=== PATIENT | female | born 1930 | race Caucasian/White ===

== ENCOUNTER → 2016-09-27 | Outpatient (CLI) | payer OTHER, MEDICARE ==
[~2016-09-27] MED LIST: ACET-1256 PO; ALBU18002 INH; BIMA0.01 OPB; BRIM0.2S18 OPB; CALC-20 PO; CALC500C70 PO; DLCS PR; DOCU100C31 PO; DXY100 PO; LCTX PO; LVNIS30 SC; MOML PO; OMEP40CA41 PO; ONDA4TAB46 PO; OXYC1TAB3 PO; POLY335025 PO; SENN8.6T15 PO; SERT25TA PO; TIMO1SOL6 OPB; TMPOPS15 OPB
[2016-09-27 12:34] LABS: BLOOD UREA NITROGEN 13 mg/dl (7-18); BUN/CREATININE RATIO 15.5 (10-20); CALCIUM 8.6 mg/dl (8.5-10.1); CARBON DIOXIDE 27 mmol/L (21-32); CHLORIDE 105 mmol/L (98-107); CREATININE 0.86 mg/dl (0.60-1.20); GLUCOSE 104 mg/dl (70-99); POTASSIUM 4.2 mmol/L (3.5-5.1); SODIUM 142 mmol/L (136-145)
[2016-09-27 13:06] LABS: ESTIMATED AVERAGE GLUCOSE 128 mg/dl; HA1C FLAG Normal (Normal)
== END | disposition home or self-care (01) ==
LOC: C.LABWYN 11:40
PROVIDERS: ATTEND Nurse Practitioner Family
DX: E11.9 Type 2 diabetes mellitus without complications (principal)

== ENCOUNTER 2016-11-06 06:21 | Inpatient (IN) | payer OTHER, MEDICARE ==
[~2016-11-06] VITALS: Ht 152.4 cm; Wt 69.3 kg
[~2016-11-06 06:21] MED LIST changes: -ACET-1256 PO; -ALBU18002 INH; -BRIM0.2S18 OPB; -CALC500C70 PO; -DLCS PR; -DXY100 PO; -LCTX PO; -MOML PO; -OMEP40CA41 PO; -ONDA4TAB46 PO; -SENN8.6T15 PO; -TIMO1SOL6 OPB
--- NOTE | 2016-11-06 07:14 | EMERGENCY ROOM VISIT NOTE ---
History Report prepared by Shirley: Alexandr Soni Under the Supervision of: Dr. Jackie Allred M.D. First contact with patient: 06:41 Chief Complaint: FALL Stated Complaint: FALL History of Present Illness The patient is an 86 year old female who presents to the Emergency Room with complaints of an acute fall that occurred earlier this morning. The patient currently complains of left hip and right elbow pain. Her hip pain is rated 6/ 10 in severity. She currently denies head or neck pain. She got up to go to the bathroom when the fall occurred. The patient notes that she hit her head, but she is not sure what she hit her head on. Per family, the patient lives at [facility]. She does not wear oxygen at home. As per EMS, the patient was hypoxic upon their arrival. Source of History: patient, family, EMS Onset: this morning Position: other (global) Quality: other (fall) Timing: other (acute) Associated Symptoms: No headache, No neck pain Note: Right elbow, left hip pain. Review of Systems See HPI for pertinent positives & negatives. A total of 10 systems reviewed and were otherwise negative. Past Medical & Surgical Medical Problems: (1) Cataracts (2) Depression (3) GI bleed (4) Glaucoma (5) Hip fracture, intertrochanteric (6) History of duodenal ulcer (7) Hypoxia (8) Intertrochanteric fracture (9) Syncope Surgical Problems: (1) History of repair of hip fracture (2) S/P hysterectomy (3) S/P IVC filter Family History Cancer Social History Smoking Status: Never Smoker Alcohol Use: none Drug Use: none Marital Status: Housing Status: unknown Occupation Status: retired Current/Historical Medications Scheduled Brimonidine Tartrate (Brimonidine Tartrate), 1 DROP OPB TID Calcium/Vitamin D (Os-Tommie 500 Plus D), 1 TAB PO DAILY Omeprazole (Prilosec), 40 MG PO BID Sennosides-Docusate Sodium (Sennalax-S), 1 TAB PO DAILY Sertraline (Zoloft), 25 MG PO DAILY Timolol Hemihydrate 0.25% Oph (Betimol 0.25% Oph), 1 DROP OPB BID Scheduled PRN Albuterol Sulfate (Proair Respiclick), 2 PUFFS INH Q4 PRN for cough or wheezing Bisacodyl (Bisac-Evac), 1 SUPP MD DAILY PRN for Constipation Magnesium Hydroxide (Milk Of Magnesia), 30 ML PO DAILY PRN for Constipation Ondansetron Hcl (Zofran), 4 MG PO Q6 PRN for Nausea Allergies Coded Allergies: Cephalosporins (Verified Allergy, Unknown, ., 11/06/16) Penicillins (Verified Allergy, Unknown, Unknown, 11/06/16) Reported by daughters. Physical Exam Vital Signs Date Time Temp Pulse Resp B/P Pulse Ox O2 Delivery O2 Flow Rate FiO2 11/06/16 10:45 88 Nasal Cannula 2.0 11/06/16 09:40 99 22 159/110 88 Room Air 11/06/16 09:20 95 Nasal Cannula 2.0 11/06/16 08:15 88 18 175/87 94 Room Air 11/06/16 06:32 74 11/06/16 06:25 36.4 70 20 196/97 99 Nasal Cannula 4.0 Physical Exam Vital signs reviewed. General: Elderly, generally well-appearing female, in no significant distress. HEENT: No scleral icterus, PERRLA, neck supple. Atraumatic. Cardiovascular: Regular rate and rhythm, no extra sounds. Pulmonary: Clear to auscultation bilaterally, normal work of breathing. Abdomen: Soft, nontender, nondistended, positive bowel sounds. Musculoskeletal: Skin tear to the right elbow, full range of motion of the bilateral upper extremities, diffuse mild tenderness to upper extremities without deformity or swelling. Neurologic: Patient awake alert and oriented x 3 Skin: Warm, dry, no rash Medical Decision & Procedures ER Provider Diagnostic Interpretation: X-ray results as stated below per my interpretation and radiologist interpretation. Other radiology results as stated below per my review and radiologist interpretation: CHEST ONE VIEW PORTABLE CLINICAL HISTORY: fall trauma COMPARISON STUDY: 08/21/2014 FINDINGS: Superior mediastinal fullness possibly progressive compared to the prior study. This may be secondary to AP technique, although visibility of the aortic arch is somewhat suboptimal. CT of the chest is suggested. Lungs otherwise appear clear. Stable nodularity right upper lung. IMPRESSION: Increased prominence of the superior mediastinum with indistinctness of the aortic arch. CT of the chest is recommended as follow-up. Electronically signed by: Perez Jesus M.D. 11/06/2016 7:37 AM Dictated Date/Time: 11/06/2016 7:36 AM PELVIS 1 OR 2 VIEW ROUTINE CLINICAL HISTORY: fall trauma. Pain. COMPARISON: 08/13/2014 DISCUSSION: Findings of a prior right hip nailing procedure. No well-defined acute bony abnormality. There is no evidence for soft tissue swelling. IMPRESSION: Postoperative change right hip and femur. No acute bony abnormality. Electronically signed by: Perez Jesus M.D. 11/06/2016 7:36 AM Dictated Date/Time: 11/06/2016 7:[address] CT DOSE: 1842.80 mGy.cm HISTORY: Trauma. Mental status change. fall, mild confusion TECHNIQUE: Multiaxial CT images of the head were performed without the use of intravenous contrast. Comparison: 08/21/2014 Findings: The paranasal sinuses and mastoid air cells are clear. The calvarium and skull base are intact. The ventricles and sulci are within normal limits. There is no mass, hematoma, midline shift, or acute infarct. Findings of considerable chronic small vessel change. 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 No new or interval finding based on the current exam. Moderate artifact based on patient motion. Impression: No acute intracranial abnormality. Considerable chronic small vessel change as well as age-related atrophy. Electronically signed by: Perez Jesus M.D. 11/06/2016 8:27 AM Dictated Date/Time: 11/06/2016 8:25 AM CHEST CTA for PULMONARY ARTERIES CT DOSE: 503.08 mGy.cm HISTORY: Chest pain dyspnea TECHNIQUE: Multiaxial CT images of the chest were performed following the intravenous administration of contrast to evaluate the pulmonary arteries. Maximal intensity projection images were also obtained. COMPARISON STUDY: None. FINDINGS: Aneurysmal dilatation thoracic aorta with maximum diameter at the level of the arch of 5.2cm. This is partially thrombus filled with a true luminal dimension of 3.6 cm. There is no evidence for dissection. Pulmonary arterial vasculature enhances appropriately. There is a very small parenchymal infiltrate posterior aspect right lower lobe. There is a 1 cm peripherally based nodule right midlung. Upper lungs otherwise are clear. IMPRESSION: 1. 5.2 cm aneurysmal dilatation apex of the aortic arch. 2. It is partially thrombus filled with a true luminal dimension of 3.5 cm. 3. No evidence for dissection or pulmonary embolus. 4. A small parenchymal infiltrate right base. 5. 1 cm nodular density peripheral aspect right midlung. Close CT follow-up in approximately 3 months is suggested Electronically signed by: Perez Jesus M.D. 11/06/2016 9:15 AM Dictated Date/Time: 11/06/2016 9:07 AM Laboratory Results Test 11/06/16 07:00 11/06/16 07:40 Urine Color YELLOW Urine Appearance CLEAR (CLEAR) Urine pH 7.0 (4.5-7.5) Urine Specific [place] 1.020 (1.000-1.030) Urine Protein NEG (NEG) Urine Glucose (UA) NEG (NEG) Urine Ketones NEG (NEG) Urine Occult Blood NEG (NEG) Urine Nitrite NEG (NEG) Urine Bilirubin NEG (NEG) Urine Urobilinogen NEG (NEG) Urine Leukocyte Esterase NEG (NEG) Immature Granulocyte % (Auto) 0.3 % White Blood Count 6.66 K/uL (4.8-10.8) Red Blood Count 4.58 M/uL (4.2-5.4) Hemoglobin 13.1 g/dL (12.0-16.0) Hematocrit 39.5 % (37-47) Mean Corpuscular Volume 86.2 fL (80-100) Mean Corpuscular Hemoglobin 28.6 pg (25-34) Mean Corpuscular Hemoglobin Concent 33.2 g/dl (32-36) Platelet Count 172 K/uL (130-400) Mean Platelet Volume 10.1 fL (7.4-10.4) Neutrophils (%) (Auto) 81.4 % Lymphocytes (%) (Auto) 10.1 % Monocytes (%) (Auto) 6.2 % Eosinophils (%) (Auto) 1.5 % Basophils (%) (Auto) 0.5 % Neutrophils # (Auto) 5.43 K/uL (1.4-6.5) Lymphocytes # (Auto) 0.67 K/uL (1.2-3.4) Monocytes # (Auto) 0.41 K/uL (0.11-0.59) Eosinophils # (Auto) 0.10 K/uL (0-0.5) Basophils # (Auto) 0.03 K/uL (0-0.2) Immature Granulocyte # (Auto) 0.02 K/uL (0.00-0.02) Total Bilirubin 0.4 mg/dl (0.2-1) Direct Bilirubin < 0.1 mg/dl (0-0.2) Aspartate Amino Transf (AST/SGOT) 21 U/L (15-37) Alanine Aminotransferase (ALT/SGPT) 24 U/L (12-78) Alkaline Phosphatase 103 U/L (45-117) Total Protein 7.1 gm/dl (6.4-8.2) Albumin 3.5 gm/dl (3.4-5.0) Procalcitonin < 0.05 ng/mL (0-0.5) Laboratory results per my review. Medications Administered Medications (Trade) Dose Ordered Sig/Bo Route Start Time Stop Time Status Last Admin Dose Admin Labetalol HCl (Normodyne IV) 10 mg NOW STAT IV 11/06/16 09:43 11/06/16 09:45 DC 11/06/16 09:58 10 MG Ondansetron HCl (Zofran Inj) 4 mg Q6H PRN IV 11/06/16 11:00 12/06/16 10:59 11/06/16 13:54 4 MG ECG Indication: other (fall) Rate (beats per minute): 84 Rhythm: sinus rhythm Findings: nonspecific-ST abn, no acute ischemic change, no ectopy, other (poor quality baseline for interpretation, low voltage) ED Course 0656: Past medical records reviewed. The patient was evaluated in room B5. A complete history and physical examination was performed. 0935: Updated the patient. 0943: Normodyne 10 mg IV. 0952: Spoke with Yanelis Aragon PA-C, [facility] Hospitalist. The patient will be evaluated. Medical Decision Differential diagnosis: Intracranial injury, cervical spine injury, intrathoracic injury, intra- abdominal injury, musculoskeletal injury. This patient was evaluated and appeared to be in no significant distress. Physical examination reveals an elderly and somewhat debilitated female. She is markedly hypertensive and was given 10 mg of IV labetalol. Chest x-ray was performed and reveals a widened mediastinum. A CT scan of the chest was recommended by radiology which was performed. This reveals a thoracic aneurysm without evidence of acute dissection. There is an intraluminal thrombus. CT scan of the head is negative. Laboratory work is fairly unrevealing. Urinalysis is negative. The patient's case was discussed with the hospitalist service. She will be evaluated for further management of the weakness and falls as well as a vascular surgery consultation regarding the aneurysm. Patient family are aware of the plan and agree. Consults Time Called: 939 Consulting Physician: Yanelis Aragon PA-C, [facility]ist. Returned Call: [phone]: Spoke with Yanelis Aragon PA-C, [facility]. The patient will be evaluated. Impression Primary Impression: Fall Additional Impressions: General weakness Thoracic aortic aneurysm Scribe Attestation The scribe's documentation has been prepared under my direction and personally reviewed by me in its entirety. I confirm that the note above accurately reflects all work, treatment, procedures, and medical decision making performed by me. Departure Information Dispostion Being Evaluated By Hospitalist Referrals LOLLY MENDES (PCP) Patient Instructions My [facility] Problem Qualifiers Primary Impression: Fall Encounter type: initial encounter Qualified Codes: W19.XXXA - Unspecified fall, initial encounter Additional Impressions: Thoracic aortic aneurysm Presence of rupture: without rupture Qualified Codes: I71.2 - Thoracic aortic aneurysm, without rupture
[2016-11-06] MEDS ORDERED: MOML PO (07:23)
[2016-11-06] MEDS ORDERED: CALC500C70 PO (07:23)
[2016-11-06] MEDS ORDERED: TIMO1SOL6 OPB (07:23)
[2016-11-06] MEDS ORDERED: BRIM0.2S18 OPB (07:23)
[2016-11-06] MEDS ORDERED: SENN8.6T15 PO (07:23)
[2016-11-06] MEDS ORDERED: OMEP40CA41 PO (07:23)
[2016-11-06] MEDS ORDERED: DLCS PR (07:23)
[2016-11-06] MEDS ORDERED: ALBU18002 INH (07:23)
[2016-11-06] MEDS ORDERED: ONDA4TAB46 PO (07:23)
[2016-11-06 07:26] LABS: MANUAL MICROSCOPIC REQUIRED? NO; REVIEW REQ? NO; URINE APPEARANCE CLEAR (CLEAR); URINE BILIRUBIN NEG (NEG); URINE COLOR YELLOW; URINE NITRITE NEG (NEG); UROBILINOGEN NEG (NEG); ZZURINE CULT IF INDIC CATH NO
--- NOTE | 2016-11-06 07:37 | DIAGNOSTIC IMAGING REPORT ---
PELVIS 1 OR 2 VIEW ROUTINE CLINICAL HISTORY: fall trauma. Pain. COMPARISON: 08/13/2014 DISCUSSION: Findings of a prior right hip nailing procedure. No well-defined acute bony abnormality. There is no evidence for soft tissue swelling. IMPRESSION: Postoperative change right hip and femur. No acute bony abnormality. Electronically signed by: Perez Jesus M.D. 11/06/2016 7:36 AM Dictated Date/Time: 11/06/2016 7:35 AM
--- NOTE | 2016-11-06 07:38 | DIAGNOSTIC IMAGING REPORT ---
CHEST ONE VIEW PORTABLE CLINICAL HISTORY: fall trauma COMPARISON STUDY: 08/21/2014 FINDINGS: Superior mediastinal fullness possibly progressive compared to the prior study. This may be secondary to AP technique, although visibility of the aortic arch is somewhat suboptimal. CT of the chest is suggested. Lungs otherwise appear clear. Stable nodularity right upper lung. IMPRESSION: Increased prominence of the superior mediastinum with indistinctness of the aortic arch. CT of the chest is recommended as follow-up. Electronically signed by: Perez Jesus M.D. 11/06/2016 7:37 AM Dictated Date/Time: 11/06/2016 7:36 AM
[2016-11-06 07:50] LABS: BASO % 0.5 %; BASO ABS # 0.03 K/uL (0-0.2); COMPLETE YES; EOS % 1.5 %; HEMATOCRIT 39.5 % (37-47); IG% 0.3 %; LYMPH % 10.1 %; LYMPH ABS # 0.67 K/uL (1.2-3.4); MEAN CELL VOLUME 86.2 fL (80-100); MEAN CORPUSCULAR HEMOGLOBIN 28.6 pg (25-34); MEAN CORPUSCULAR HGB CONC 33.2 g/dl (32-36); MEAN PLATELET VOLUME 10.1 fL (7.4-10.4); MONO % 6.2 %; NEUT % 81.4 %; PLATELET COUNT 172 K/uL (130-400); RED BLOOD COUNT 4.58 M/uL (4.2-5.4); WHITE BLOOD COUNT 6.66 K/uL (4.8-10.8)
--- NOTE | 2016-11-06 08:28 | DIAGNOSTIC IMAGING REPORT ---
HEAD CT NONCONTRAST CT DOSE: 1842.80 mGy.cm HISTORY: Trauma. Mental status change. fall, mild confusion TECHNIQUE: Multiaxial CT images of the head were performed without the use of intravenous contrast. Comparison: 08/21/2014 Findings: The paranasal sinuses and mastoid air cells are clear. The calvarium and skull base are intact. The ventricles and sulci are within normal limits. There is no mass, hematoma, midline shift, or acute infarct. Findings of considerable chronic small vessel change. 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 No new or interval finding based on the current exam. Moderate artifact based on patient motion. Impression: No acute intracranial abnormality. Considerable chronic small vessel change as well as age-related atrophy. Electronically signed by: Perez Jesus M.D. 11/06/2016 8:27 AM Dictated Date/Time: 11/06/2016 8:25 AM
[2016-11-06 08:39] LABS: ALT/SGPT 24 U/L (12-78); BLOOD UREA NITROGEN 11 mg/dl (7-18); BUN/CREATININE RATIO 13.1 (10-20); CALCIUM 8.6 mg/dl (8.5-10.1); CARBON DIOXIDE 27 mmol/L (21-32); CHLORIDE 108 mmol/L (98-107); CREATININE 0.84 mg/dl (0.60-1.20); GLUCOSE 113 mg/dl (70-99); SODIUM 142 mmol/L (136-145)
[2016-11-06 08:42] LABS: ALKALINE PHOSPHATASE 103 U/L (45-117); AST/SGOT 21 U/L (15-37)
[2016-11-06] MEDS ORDERED: OPTIRAY 320 IV PRN (09:00)
--- NOTE | 2016-11-06 09:17 | DIAGNOSTIC IMAGING REPORT ---
CHEST CTA for PULMONARY ARTERIES CT DOSE: 503.08 mGy.cm HISTORY: Chest pain dyspnea TECHNIQUE: Multiaxial CT images of the chest were performed following the intravenous administration of contrast to evaluate the pulmonary arteries. Maximal intensity projection images were also obtained. COMPARISON STUDY: None. FINDINGS: Aneurysmal dilatation thoracic aorta with maximum diameter at the level of the arch of 5.2cm. This is partially thrombus filled with a true luminal dimension of 3.6 cm. There is no evidence for dissection. Pulmonary arterial vasculature enhances appropriately. There is a very small parenchymal infiltrate posterior aspect right lower lobe. There is a 1 cm peripherally based nodule right midlung. Upper lungs otherwise are clear. IMPRESSION: 1. 5.2 cm aneurysmal dilatation apex of the aortic arch. 2. It is partially thrombus filled with a true luminal dimension of 3.5 cm. 3. No evidence for dissection or pulmonary embolus. 4. A small parenchymal infiltrate right base. 5. 1 cm nodular density peripheral aspect right midlung. Close CT follow-up in approximately 3 months is suggested Electronically signed by: Perez Jesus M.D. 11/06/2016 9:15 AM Dictated Date/Time: 11/06/2016 9:07 AM
[2016-11-06] MEDS ORDERED: LABETALOL HCL IV 5 MG/ML 20ML IV STA (09:43)
[2016-11-06 10:45] VITALS: O2SAT 88; Ht 152.4 cm; Wt 69.3 kg
[2016-11-06] MEDS ORDERED: ONDANSETRON INJ 2 MG/ML 2 ML VIAL IV PRN (11:00)
[2016-11-06] MEDS ORDERED: ACETAMINOPHEN 325 MG TAB PO PRN (11:00)
[2016-11-06] MEDS ORDERED: METOPROLOL TARTRATE 1 MG/ML VIAL IV PRN (11:15)
[2016-11-06] MEDS ORDERED: ALBUTEROL HFA 8 GM INHALER INH PRN (11:15)
[2016-11-06] MEDS ORDERED: DOXYCYCLINE HYCLATE 100 MG CAP PO ONE (12:11)
--- NOTE | 2016-11-06 12:30 | History and Physical ---
History & Physical Date & Time of Service: Nov 06, 2016 at 11:18 Chief Complaint: FALL Primary Care Physician: Madalyn Luke History of Present Illness Source: patient, family (daughters at bedside), hospital records, other ( [facility] personal mcc) This is an 86 year old female with PMH listed below who was brought to the ED by ambulance from [facility] s/p fall. Hx obtained from daughters, records, and [facility] staff as patient is not a reliable historian and likely has underlying dementia. Pt does not recall what happened. Per my phone call with [facility] the fall was unwitnessed in her room after she ambulated from the living room. Unknown if there was head trauma or LOC. She was c/o hip and back pain when they found her down. She sustained a skin tear to her right elbow. An ambulance was called. On arrival to the ER she was found to be hypoxic to 88% on RA which improved on 2 liters NC. She is not on chronic oxygen. She ambulated to the restroom in the ER with assistance. She denies any pain, dizziness, headache. No focal neurological symptoms. She is oriented only to person and is unable to recall events. Her mental status is at baseline per her daughters. She ambulates with a walker typically. No other recent falls. Patient had a CT scan done in the ER showing 5.2 cm thoracic aortic aneurysm which is partially thrombus filled as well as a small infiltrate on right base. Pt denies chest pain or SOB. Family states they noted her coughing today but not bringing up sputum. There was no recent fever, upper respiratory symptoms, cough, SOB, or aspiration noted by [facility] staff. No recent GI symptoms per the family- eating well and having regular bowel movements. She is incontinent of urine in the ER which is not typical for her. Patient's blood pressure has been significantly elevated in the ER. She is extremely anxious when the cuff is being inflated. Her BP is not monitored at the personal mcc. Daughters deny hx of HTN. She is not on chronic BP meds. She was given IV labetalol in the ER. Family denies hx of cardiac disorder, lung disease, pneumonia, diabetes, CVA, TIA, seizure. As per family she was not known to have thoracic aortic aneurysm in the past. No recent hospitalization or antibiotics. Past Medical/Surgical History Medical Problems: (1) Cataracts Status: Chronic (2) Depression Status: Chronic (3) GI bleed Permanent Comment: secondary to duodenal ulcer in s/p injection and clipping at [facility] 08/21/14; then transferred to [place] and underwent embolization of gastro duodenal artery 08/22/14 which was complicated by unintended hepatic artery embolization Status: Resolved (4) Glaucoma Status: Chronic (5) Hip fracture, intertrochanteric Status: Resolved (6) History of duodenal ulcer Status: Chronic (7) Intertrochanteric fracture Status: Resolved (8) Syncope Permanent Comment: 08/2014 second to acute blood loss anemia Status: Resolved Surgical Problems: (1) History of repair of hip fracture Permanent Comment: right Status: Chronic (2) S/P hysterectomy Status: Chronic (3) S/P IVC filter Permanent Comment: placed 08/22/14 at [place] for PE prevention at time of gastroduodenal artery embolization for duodenal hemorrhage Status: Chronic Family History Cancer FH: CAD (coronary artery disease) FATHER MOTHER FH: aortic aneurysm BROTHER Social History Smoking Status: Never Smoker Alcohol Use: none Drug Use: none Housing status: other (assisted living [facility]) Occupational Status: retired Multi-Drug Resistant Organisms History of MDRO: No Allergies Coded Allergies: Cephalosporins (Verified Allergy, Unknown, ., 11/06/16) Penicillins (Verified Allergy, Unknown, Unknown, 11/06/16) Reported by daughters. Home Medications Scheduled Brimonidine Tartrate (Brimonidine Tartrate), 1 DROP OPB TID Calcium/Vitamin D (Os-Tommie 500 Plus D), 1 TAB PO DAILY Omeprazole (Prilosec), 40 MG PO BID Sennosides-Docusate Sodium (Sennalax-S), 1 TAB PO DAILY Sertraline (Zoloft), 25 MG PO DAILY Timolol Hemihydrate 0.25% Oph (Betimol 0.25% Oph), 1 DROP OPB BID Scheduled PRN Albuterol Sulfate (Proair Respiclick), 2 PUFFS INH Q4 PRN for cough or wheezing Bisacodyl (Bisac-Evac), 1 SUPP [place] DAILY PRN for Constipation Magnesium Hydroxide (Milk Of Magnesia), 30 ML PO DAILY PRN for Constipation Ondansetron Hcl (Zofran), 4 MG PO Q6 PRN for Nausea Review of Systems ROS could not be performed as patient is not a reliable historian. Likely underlying dementia. Physical Exam Vital Signs Date Time Temp Pulse Resp B/P Pulse Ox O2 Delivery O2 Flow Rate FiO2 11/06/16 10:45 88 Nasal Cannula 2.0 11/06/16 09:40 99 22 159/110 88 Room Air 11/06/16 09:20 95 Nasal Cannula 2.0 11/06/16 08:15 88 18 175/87 94 Room Air 11/06/16 06:32 74 11/06/16 06:25 36.4 70 20 196/97 99 Nasal Cannula 4.0 General Appearance: WD/WN, + pertinent finding (alert 86 year old female, demented, family at bedside) Head: normocephalic, atraumatic Eyes: normal inspection, PERRL, EOMI ENT: hearing grossly normal, pharynx normal Neck: supple, trachea midline Respiratory/Chest: lungs clear, normal breath sounds, no respiratory distress, no accessory muscle use, + pertinent finding (patient had coughing episode during exam, appeared to expectorate sputum into her mouth, refused to spit into tissue) Cardiovascular: regular rate, rhythm, no murmur Abdomen/GI: normal bowel sounds, non tender, soft Extremities/Musculoskelatal: no calf tenderness, no pedal edema, + pertinent finding (she is diffusely sensitive to light touch throughout her extremities) Neurologic/Psych: alert, + pertinent finding (oriented to person only. unable to recall recent events. follows commands. no facial droop. no focal motor deficit. severe anxiety when blood pressure cuff inflates.) Skin: normal color, warm/dry, + pertinent finding (dressing over skin tear on right elbow) Diagnostics Laboratory Results Results Past 24 Hours Test 11/06/16 07:00 11/06/16 07:40 Range/Units Urine Color YELLOW Urine Appearance CLEAR CLEAR Urine pH 7.0 4.5-7.5 Urine Specific [place] 1.020 1.000-1.030 Urine Protein NEG NEG Urine Glucose (UA) NEG NEG Urine Ketones NEG NEG Urine Occult Blood NEG NEG Urine Nitrite NEG NEG Urine Bilirubin NEG NEG Urine Urobilinogen NEG NEG Urine Leukocyte Esterase NEG NEG White Blood Count 6.66 4.8-10.8 K/uL Red Blood Count 4.58 4.2-5.4 M/uL Hemoglobin 13.1 12.0-16.0 g/dL Hematocrit 39.5 37-47 % Mean Corpuscular Volume 86.2 80-100 fL Mean Corpuscular Hemoglobin 28.6 25-34 pg Mean Corpuscular Hemoglobin Concent 33.2 32-36 g/dl Platelet Count 172 130-400 K/uL Mean Platelet Volume 10.1 7.4-10.4 fL Neutrophils (%) (Auto) 81.4 % Lymphocytes (%) (Auto) 10.1 % Monocytes (%) (Auto) 6.2 % Eosinophils (%) (Auto) 1.5 % Basophils (%) (Auto) 0.5 % Neutrophils # (Auto) 5.43 1.4-6.5 K/uL Lymphocytes # (Auto) 0.67 1.2-3.4 K/uL Monocytes # (Auto) 0.41 0.11-0.59 K/uL Eosinophils # (Auto) 0.10 0-0.5 K/uL Basophils # (Auto) 0.03 0-0.2 K/uL RDW Standard Deviation 47.6 36.4-46.3 fL RDW Coefficient of Variation 15.0 11.5-14.5 % Immature Granulocyte % (Auto) 0.3 % Immature Granulocyte # (Auto) 0.02 0.00-0.02 K/uL Sodium Level 142 136-145 mmol/L Potassium Level 4.0 3.5-5.1 mmol/L Chloride Level 108 98-107 mmol/L Carbon Dioxide Level 27 21-32 mmol/L Anion Gap 7.0 3-11 mmol/L Blood Urea Nitrogen 11 7-18 mg/dl Creatinine 0.84 0.60-1.20 mg/dl Est Creatinine Clear Calc Drug Dose 41.1 ml/min Estimated GFR () 71.9 Estimated GFR (Non- 62.1 BUN/Creatinine Ratio 13.1 10-20 Random Glucose 113 70-99 mg/dl Calcium Level 8.6 8.5-10.1 mg/dl Total Bilirubin 0.4 0.2-1 mg/dl Direct Bilirubin < 0.1 0-0.2 mg/dl Aspartate Amino Transf (AST/SGOT) 21 15-37 U/L Alanine Aminotransferase (ALT/SGPT) 24 12-78 U/L Alkaline Phosphatase 103 45-117 U/L Total Protein 7.1 6.4-8.2 gm/dl Albumin 3.5 3.4-5.0 gm/dl Diagnostic Radiology PELVIS 1 OR 2 VIEW ROUTINE CLINICAL HISTORY: fall trauma. Pain. COMPARISON: 08/13/2014 DISCUSSION: Findings of a prior right hip nailing procedure. No well-defined acute bony abnormality. There is no evidence for soft tissue swelling. IMPRESSION: Postoperative change right hip and femur. No acute bony abnormality. HEAD CT NONCONTRAST CT DOSE: 1842.80 mGy.cm HISTORY: Trauma. Mental status change. fall, mild confusion TECHNIQUE: Multiaxial CT images of the head were performed without the use of intravenous contrast. Comparison: 08/21/2014 Findings: The paranasal sinuses and mastoid air cells are clear. The calvarium and skull base are intact. The ventricles and sulci are within normal limits. There is no mass, hematoma, midline shift, or acute infarct. Findings of considerable chronic small vessel change. 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 No new or interval finding based on the current exam. Moderate artifact based on patient motion. Impression: No acute intracranial abnormality. Considerable chronic small vessel change as well as age-related atrophy. CHEST ONE VIEW PORTABLE CLINICAL HISTORY: fall trauma COMPARISON STUDY: 08/21/2014 FINDINGS: Superior mediastinal fullness possibly progressive compared to the prior study. This may be secondary to AP technique, although visibility of the aortic arch is somewhat suboptimal. CT of the chest is suggested. Lungs otherwise appear clear. Stable nodularity right upper lung. IMPRESSION: Increased prominence of the superior mediastinum with indistinctness of the aortic arch. CT of the chest is recommended as follow-up. CHEST CTA for PULMONARY ARTERIES CT DOSE: 503.08 mGy.cm HISTORY: Chest pain dyspnea TECHNIQUE: Multiaxial CT images of the chest were performed following the intravenous administration of contrast to evaluate the pulmonary arteries. Maximal intensity projection images were also obtained. COMPARISON STUDY: None. FINDINGS: Aneurysmal dilatation thoracic aorta with maximum diameter at the level of the arch of 5.2cm. This is partially thrombus filled with a true luminal dimension of 3.6 cm. There is no evidence for dissection. Pulmonary arterial vasculature enhances appropriately. There is a very small parenchymal infiltrate posterior aspect right lower lobe. There is a 1 cm peripherally based nodule right midlung. Upper lungs otherwise are clear. IMPRESSION: 1. 5.2 cm aneurysmal dilatation apex of the aortic arch. 2. It is partially thrombus filled with a true luminal dimension of 3.5 cm. 3. No evidence for dissection or pulmonary embolus. 4. A small parenchymal infiltrate right base. 5. 1 cm nodular density peripheral aspect right midlung. Close CT follow-up in approximately 3 months is suggested EKG NSR, 84 bpm, possible nonspecific T wave abnormality inferior leads but difficult to interpret due to artifact Impression Assessment and Plan S/P FALL Unwitnessed; history unobtainable from patient No apparent injury except for R elbow skin tear CT head-no acute findings; x-ray pelvis- no acute findings Fall precautions PT and OT evaluations HYPERTENSION BP significantly elevated in ER; likely due to anxiety No hx of HTN; not on chronic BP meds Treated with IV labetalol in ER Ordered IV Lopressor 5 mg PRN SBP >180 THORACIC AORTIC ANEURYSM New diagnosis found incidentally CT chest- 5.2 cm aneurysmal dilatation apex of the aortic arch. It is partially thrombus filled with a true luminal dimension of 3.5 cm. No evidence for dissection. Family states they would not want patient to have surgery and prefer conservative management Family would like vascular surgery input Consult vascular surgery HYPOXIA/ POSSIBLE RLL PNEUMONIA Small R base infiltrate seen on CT chest; ruled out for PE + hypoxia on RA improved with 2 liters NC; not on home O2; afebrile; no leukocytosis; procalcitonin WNL Family noted patient coughing today only No suspected aspiration per [facility] staff Check influenza PCR Will start on PO doxycycline Continue supplemental O2 per protocol. LUNG NODULE CT chest shows 1 cm nodular density peripheral aspect right midlung. Close CT follow-up in approximately 3 months is suggested Follow as outpatient HX PUD Continue PPI DEPRESSION Continue sertraline GLAUCOMA Continue eye drops DVT PROPHYLAXIS Heparin SQ CODE STATUS DNR per my discussion with the daughters who are both JAMI Barron ) and Kaitlin Prince ([phone]). Daughters request to be called with updates and would like to be present for vascular surgery consult. DISPOSITION Lives at [facility]; followed by Dr. Wang May need higher level of care Social service, PT, OT consults placed Patient seen in collaboration with Dr. Mckinney. Please see his addendum. Attending Note: Patient is an 86 yr old female with presents for evaluation after having an unwitnessed fall. She has dementia and is unaware of the events at [facility]. Imaging studies were negative for any acute fractures. Currently she denies any pain. On Arrival in ED she was saturating 88% on RA which improved with 2L NC. Mental status at baseline per family. CT showed an incidental finding of 5.2 cm thoracic aortic aneurysm which is partially thrombus filled as well as a small infiltrate on right base. BP elevated when arrival, currently resolved. Physical Exam: Vitals signs as noted above General Appearance:Moderately built and nourished, no apparent distress Head: normocephalic, Atraumatic Eyes: normal inspection, EOMI, PERRLA Neck: supple, Trachea midline Respiratory/Chest: Normal breath sounds, CTA Cardiovascular: S1, S2, No murmur Abdomen/GI:Soft, Non tender, Bowel sounds present Extremities/Musculoskelatal:normal inspection, Trace edema Neurologic/Psych:AAOX3, grossly no focal neurological deficits Skin:normal color,warm Assessment and Plan: Unwitnessed fall: Imaging studies negative for acute pathology Mental status at baseline CT head: No acute pathology Fall precautions PT/OT THORACIC AORTIC ANEURYSM New incidental finding CT chest: 5.2 cm aneurysmal dilatation apex of the aortic arch. It is partially thrombus filled with a true luminal dimension of 3.5 cm. No evidence for dissection. Asymptomatic conservative management per request of family Vascular surgery consulted for input I personally reviewed the record. Patient is interviewed and examined at bedside. Patient's care is coordinated with Carlene Aragon PA-C. Please refer to the documentation above for details of patient's presentation and for discussion of other issues. Advanced Directives Existing Living Will: Yes Existing Power of Director Of [facility]: Yes VTE Prophylaxis VTE Risk Assessment Done? Y/N: Yes Risk Level: High
[2016-11-06 12:45] VITALS: BP 173/84; PULSE 97; TEMP 36.3; O2SAT 91
[2016-11-06] MEDS: BRIMONIDINE TARTRATE 0.2% 5ML OPB SCH ×2 (13:18→21:00)
[2016-11-06 13:37] LABS: INR 1.1 (0.9-1.1); PROTHROMBIN TIME (PATIENT) 11.4 SECONDS (9.0-12.0)
[2016-11-06 15:02] VITALS: BP 98/63; PULSE 78; TEMP 37.2; O2SAT 95
[2016-11-06] MEDS: HEPARIN SOD 5000 UNIT/0.5 ML CARP SQ SCH ×2 (15:41→22:15)
[2016-11-06] MEDS: [UNRECOGNIZED DRUG - OTHER] SCH ×2 (18:00→22:16)
[2016-11-06 20:55] LABS: INFLUENZA A PCR Neg for Influ A (NEG); INFLUENZA B PCR Neg for Influ B (NEG)
[2016-11-06] MEDS: DOXYCYCLINE HYCLATE 100 MG CAP PO SCH (21:00)
[2016-11-06] MEDS: PANTOprazole SOD 40 MG TAB PO SCH (21:00)
[2016-11-07] VITALS (8 sets, daily range): BP systolic 95–138; BP diastolic 58–69; PULSE 63–81; TEMP 36.6–37.4; O2SAT 90–97
[2016-11-07] MEDS: HEPARIN SOD 5000 UNIT/0.5 ML CARP SQ SCH ×3 (06:05→21:50)
[2016-11-07] MEDS: DOCUSATE SODIUM/SENNA 50/8.6MG TAB PO SCH (07:38)
[2016-11-07] MEDS: PANTOprazole SOD 40 MG TAB PO SCH ×2 (07:38→21:00)
[2016-11-07] MEDS: DOXYCYCLINE HYCLATE 100 MG CAP PO SCH ×2 (07:39→21:00)
[2016-11-07] MEDS: SERTRALINE HCL 50 MG TAB PO SCH (07:39)
[2016-11-07] MEDS: CALCIUM 600MG + VIT D 400 IU TAB PO SCH (07:40)
[2016-11-07] MEDS: BRIMONIDINE TARTRATE 0.2% 5ML OPB SCH ×3 (07:40→21:00)
--- NOTE | 2016-11-07 10:07 | Surgery Consultation ---
Consultation Date of Service Nov 07, 2016. (Jazlyn Gallardo, ANA) Chief Complaint Thoracic AA (Jazlyn Gallardo PA-C) History of Present Illness The patient is a 86 year old female with hx of TAA, seen in consultation regarding thoracic AA noted on CTA chest. Pt unreliable historian d/t dementia and is unable to provide any relevant hx. CTA demonstrates TAA measuring 5.2cm with intraluminal thrombus, without dissection. (Jazlyn Gallardo, ANA) Vitals Vital Signs Past 12 Hours Date Time Temp Pulse Resp B/P Pulse Ox O2 Delivery O2 Flow Rate FiO2 11/07/16 08:00 Room Air 11/07/16 06:41 36.7 65 18 95/58 90 Room Air 11/07/16 04:00 37.0 81 18 138/69 90 Room Air 11/07/16 04:00 Nasal Cannula 2.0 11/07/16 00:00 36.6 81 18 98/66 90 Room Air 11/07/16 00:00 Nasal Cannula 2.0 (Jazlyn Gallardo, ANA) Allergies Coded Allergies: Cephalosporins (Verified Allergy, Unknown, ., 11/06/16) Penicillins (Verified Allergy, Unknown, Unknown, 11/06/16) Reported by daughters. Home Medications Scheduled Brimonidine Tartrate (Brimonidine Tartrate), 1 DROP OPB TID Calcium/Vitamin D (Os-Tommie 500 Plus D), 1 TAB PO DAILY Omeprazole (Prilosec), 40 MG PO BID Sennosides-Docusate Sodium (Sennalax-S), 1 TAB PO DAILY Sertraline (Zoloft), 25 MG PO DAILY Timolol Hemihydrate 0.25% Oph (Betimol 0.25% Oph), 1 DROP OPB BID Scheduled PRN Albuterol Sulfate (Proair Respiclick), 2 PUFFS INH Q4 PRN for cough or wheezing Bisacodyl (Bisac-Evac), 1 SUPP [place] DAILY PRN for Constipation Magnesium Hydroxide (Milk Of Magnesia), 30 ML PO DAILY PRN for Constipation Ondansetron Hcl (Zofran), 4 MG PO Q6 PRN for Nausea Problem List Medical Problems: (1) Cataracts (2) Depression (3) GI bleed (4) Glaucoma (5) Hip fracture, intertrochanteric (6) History of duodenal ulcer (7) Hypoxia (8) Intertrochanteric fracture (9) Syncope Surgical Problems: (1) History of repair of hip fracture (2) S/P hysterectomy (3) S/P IVC filter (Jazlyn Gallardo PA-C) Surgical / Medical History Hx Cardiac Surgery: No Hx Abdominal Surgery: Yes (BILLIE) Hx Cancer Surgery: No Hx Thoracic Surgery: No Hx Orthopedic: Yes (RIGHT HIP) Hx Urinary Tract Surgery: Yes (BLADDER TACKED) HX Other Surgery: Yes (EGD, bilateral cataracts) (Jazlyn Gallardo PA-C) Family History Cancer FH: CAD (coronary artery disease) FATHER MOTHER FH: aortic aneurysm BROTHER (Jazlyn Gallardo PA-C) Cancer FH: CAD (coronary artery disease) FATHER MOTHER FH: aortic aneurysm BROTHER (David Dixon M.D.) Social History Smoking Status: Never Smoker Hx Tobacco Use In Past Year?: No Hx Alcohol Use - Type & Amnt: No Hx Substance Use -Type & Amnt: No (Jazlyn Gallardo PA-C) Review of Systems Additional Comments: Pt denies any pain. Unable to elicit accurate ROS d/t dementia. (Jazlyn Gallardo, ANA) Physical Exam Constitutional: General Apperance: well-nourished, well-developed Level of Distress: NAD, chronically ill (mildly) Psychiatric: Mental Status: lethargic (Pt states "yes" when asked to confirm her name, refuses to open her eyes or cooperate for exam.), confused Orientation: to person, not oriented to time, not oriented to place Memory: recent memory abnormal, remote memory abnormal Head: normocephalic, atraumatic ENMT: normal ENT inspection, hearing grossly normal Neck: supple, trachea midline Lungs: Respiratory effort: no dyspnea Auscultation: breath sounds normal Cardiovascular: Apical Impulse: not displaced Heart Auscultation: RRR, no rubs, no gallops Peripheral Pulses: Pulses: full and equal, in all extremities except if noted Bruits: none appreciated Carotid Pulse: normal on the left, normal on the right Radial Pulse: normal on the left, normal on the right Femoral Pulse: normal on the left, normal on the right Posterior Tibialis Pulse: decreased on the left, decreased on the right Dorsalis Pedis Pulse: decreased on the left, decreased on the right Abdomen: Bowel Sounds: normal Inspection & Palpation: soft, non-distended Musculoskeletal: normal strength (5/5 throughout), normal tone Extremities: Upper Right: no cyanosis, no edema, no varicosities Upper Left: no cyanosis, no edema, no varicosities Lower Right: no cyanosis, no edema, no varicosities Lower Left: no cyanosis, no edema, no varicosities Neurologic: Cranial Nerves: grossly intact (Jazlyn Gallardo, PA-C) Assessment and Plan ASSESSMENT and PLAN: Thoracic AA Pt discussed with Dr Dixon, who reviewed pt's CT scans. Does not recommend surgical intervention d/t complexity of surgery required and multiple comorbidities which contribute to pt being poor surgical candidate. Will discuss with pt's daughter as well. No further follow up needed for TAA. (Jazlyn Gallardo, PA-C) Patient was seen, examined, and chart reviewed. Agree with exam and treatment plan of the Vascular PA. No intervention needed at this time for this thoracic aneurysm. Due to patient' s age and medical status, she is not a candidate for thoracic aneurysm intervention. No need to follow up with this finding. (David Dixon M.D.)
--- NOTE | 2016-11-07 17:25 | Progress Note ---
Internal Med Progress Note Date of Service: Nov 07, 2016. Provider Documentation: SUBJECTIVE: Patient is seen and examined at bedside. Doing well. Offers no complaints. Mild cough. Family bedside. Denies chest pain, SOB, palpitations, dizziness. OBJECTIVE: Vital Signs-as noted below General Appearance:Moderately built and nourished, no apparent distress Head: normocephalic, Atraumatic Eyes: normal inspection, EOMI, PERRLA Neck: supple, Trachea midline Respiratory/Chest: Normal breath sounds, CTA Cardiovascular: S1, S2, No murmur Abdomen/GI:Soft, Non tender, Bowel sounds present Extremities/Musculoskelatal:normal inspection, Trace edema Neurologic/Psych:AAOX3, grossly no focal neurological deficits Skin:normal color,warm Lab data as noted below. ASSESSMENT & PLAN: Unwitnessed fall: Imaging studies negative for acute pathology Mental status at baseline CT head: No acute pathology Fall precautions PT/OT THORACIC AORTIC ANEURYSM New incidental finding CT chest: 5.2 cm aneurysmal dilatation apex of the aortic arch. It is partially thrombus filled with a true luminal dimension of 3.5 cm. No evidence for dissection. Asymptomatic conservative management per request of family Appreciate Vascular surgery input No plan for any surgical intervention HYPERTENSION Elevated on presentation likely secondary to anxiety No hx of HTN or use of HTN meds at home Controlled, monitor HYPOXIA/ POSSIBLE RLL PNEUMONIA Small R base infiltrate seen on CT chest; ruled out for PE Currently saturating well on RA Continue PO doxycycline O2 PRN per protocol. LUNG NODULE CT chest: 1 cm nodular density peripheral aspect right midlung May need close monitoring as outpatient HX PUD Continue PPI DEPRESSION Continue sertraline GLAUCOMA Continue eye drops DVT PX Heparin SQ CODE STATUS DNR DISPOSITION: Lives at [facility]; followed by Dr. Wang Needs acute rehab Vs SNF Social service/PT/OT consulted Will plan to discharge when bed available Vital Signs: Date Time Temp Pulse Resp B/P Pulse Ox O2 Delivery O2 Flow Rate FiO2 11/07/16 16:02 36.7 63 16 117/67 97 Room Air 11/07/16 12:39 36.8 11/07/16 12:00 Room Air 11/07/16 11:40 37.4 66 16 101/63 90 Room Air 11/07/16 08:00 Room Air 11/07/16 06:41 36.7 65 18 95/58 90 Room Air 11/07/16 04:00 37.0 81 18 138/69 90 Room Air 11/07/16 04:00 Nasal Cannula 2.0 11/07/16 00:00 36.6 81 18 98/66 90 Room Air 11/07/16 00:00 Nasal Cannula 2.0 11/06/16 20:00 Nasal Cannula 2.0 Lab Results: Results Past 24 Hours Test 11/06/16 19:20 Range/Units Influenza Type A (RT-PCR) Neg for Influ A NEG Influenza Type B (RT-PCR) Neg for Influ B NEG
[2016-11-08] MEDS: [UNRECOGNIZED DRUG - OTHER] SCH (05:27)
[2016-11-08] MEDS: HEPARIN SOD 5000 UNIT/0.5 ML CARP SQ SCH ×3 (05:29→21:19)
[2016-11-08 06:46] VITALS: BP 133/73; PULSE 65; TEMP 36.2; O2SAT 94
[2016-11-08] MEDS: BRIMONIDINE TARTRATE 0.2% 5ML OPB SCH ×3 (08:56→21:16)
[2016-11-08] MEDS: DOCUSATE SODIUM/SENNA 50/8.6MG TAB PO SCH (08:57)
[2016-11-08] MEDS: PANTOprazole SOD 40 MG TAB PO SCH ×2 (08:57→21:17)
[2016-11-08] MEDS: SERTRALINE HCL 50 MG TAB PO SCH (08:57)
[2016-11-08] MEDS: CALCIUM 600MG + VIT D 400 IU TAB PO SCH (08:57)
[2016-11-08] MEDS: DOXYCYCLINE HYCLATE 100 MG CAP PO SCH ×2 (08:58→21:17)
--- NOTE | 2016-11-08 09:32 | Progress Note ---
Internal Med Progress Note Date of Service: Nov 08, 2016. Provider Documentation: SUBJECTIVE: Patient is seen and examined at bedside. States feeling well. Denies any chest pain, SOB, palpitations, dizziness. No events overnight. OBJECTIVE: Vital Signs-as noted below General Appearance:Moderately built and nourished, no apparent distress Head: normocephalic, Atraumatic Eyes: normal inspection, EOMI, PERRLA Neck: supple, Trachea midline Respiratory/Chest: Normal breath sounds, CTA Cardiovascular: S1, S2, No murmur Abdomen/GI:Soft, Non tender, Bowel sounds present Extremities/Musculoskelatal:normal inspection, Trace edema Neurologic/Psych:AAOX3, grossly no focal neurological deficits Skin:normal color,warm Lab data as noted below. ASSESSMENT & PLAN: Unwitnessed fall: Imaging studies negative for acute pathology Mental status at baseline CT head: No acute pathology Fall precautions PT/OT THORACIC AORTIC ANEURYSM New incidental finding CT chest: 5.2 cm aneurysmal dilatation apex of the aortic arch. It is partially thrombus filled with a true luminal dimension of 3.5 cm. No evidence for dissection. Asymptomatic conservative management per request of family Appreciate Vascular surgery input No plan for any surgical intervention HYPERTENSION Elevated on presentation likely secondary to anxiety No hx of HTN or use of HTN meds at home Currently controlled, monitor HYPOXIA/ POSSIBLE RLL PNEUMONIA Small R base infiltrate seen on CT chest; ruled out for PE Continue PO doxycycline O2 PRN per protocol. May need [address] chest: 1 cm nodular density peripheral aspect right midlung May need close monitoring as outpatient HX PUD Continue PPI DEPRESSION Continue sertraline GLAUCOMA Continue eye drops DVT PX Heparin SQ CODE STATUS DNR DISPOSITION: Lives at [facility]; followed by Dr. Wang Needs acute rehab Vs SNF Social service/PT/OT consulted Plan to discharge when bed available May need 2 step prior to discharge Vital Signs: Date Time Temp Pulse Resp B/P Pulse Ox O2 Delivery O2 Flow Rate FiO2 11/08/16 08:00 Nasal Cannula 2.0 11/08/16 06:46 36.2 65 20 133/73 94 Room Air 11/08/16 04:00 Nasal Cannula 2.0 11/08/16 00:00 Nasal Cannula 2.0 11/07/16 23:22 36.9 63 18 129/69 90 Room Air 11/07/16 20:00 Nasal Cannula 2.0 3/20/17 20:00 37.0 81 18 138/69 90 Room Air 11/07/16 16:02 36.7 63 16 117/67 97 Room Air 11/07/16 16:00 Room Air 11/07/16 12:39 36.8 11/07/16 12:00 Room Air 11/07/16 11:40 37.4 66 16 101/63 90 Room Air
[2016-11-08 11:17] VITALS: BP 150/94; PULSE 79; TEMP 36.2; O2SAT 92
[2016-11-08 15:24] VITALS: BP 100/71; PULSE 71; TEMP 36.7; O2SAT 92
[2016-11-08 16:00] VITALS: O2SAT 92
[2016-11-08 19:50] VITALS: BP 124/47; PULSE 79; TEMP 36.8; O2SAT 91
[2016-11-08 20:00] VITALS: O2SAT 92
[2016-11-09] VITALS (10 sets, daily range): BP systolic 89–142; BP diastolic 54–94; PULSE 60–68; TEMP 36.3–36.6; O2SAT 92–96
[2016-11-09] MEDS: [UNRECOGNIZED DRUG - OTHER] SCH (05:02)
[2016-11-09] MEDS: HEPARIN SOD 5000 UNIT/0.5 ML CARP SQ SCH ×2 (05:36→14:00)
[2016-11-09 07:17] LABS: HEMATOCRIT 38.6 % (37-47); MEAN CELL VOLUME 87.9 fL (80-100); MEAN CORPUSCULAR HEMOGLOBIN 28.5 pg (25-34); MEAN CORPUSCULAR HGB CONC 32.4 g/dl (32-36); MEAN PLATELET VOLUME 10.5 fL (7.4-10.4); PLATELET COUNT 165 K/uL (130-400); RED BLOOD COUNT 4.39 M/uL (4.2-5.4); WHITE BLOOD COUNT 4.62 K/uL (4.8-10.8)
[2016-11-09] MEDS: PANTOprazole SOD 40 MG TAB PO SCH (08:32)
[2016-11-09] MEDS: CALCIUM 600MG + VIT D 400 IU TAB PO SCH (08:32)
[2016-11-09] MEDS: BRIMONIDINE TARTRATE 0.2% 5ML OPB SCH ×2 (08:32→14:01)
[2016-11-09] MEDS: DOXYCYCLINE HYCLATE 100 MG CAP PO SCH (08:33)
[2016-11-09] MEDS: DOCUSATE SODIUM/SENNA 50/8.6MG TAB PO SCH (08:33)
[2016-11-09] MEDS: SERTRALINE HCL 50 MG TAB PO SCH (08:33)
[2016-11-09 10:10] LABS: BUN/CREATININE RATIO 19.1 (10-20); CALCIUM 8.5 mg/dl (8.5-10.1); CREATININE 0.95 mg/dl (0.60-1.20); POTASSIUM 3.9 mmol/L (3.5-5.1)
[2016-11-09 11:07] LABS: MAGNESIUM 2.3 mg/dl (1.8-2.4); PHOSPHORUS 3.5 mg/dl (2.5-4.9)
--- NOTE | 2016-11-09 12:17 | Progress Note ---
Internal Med Progress Note Date of Service: Nov 09, 2016. Provider Documentation: SUBJECTIVE: The patient was seen and examined Remains stable Generally weak and lethargic OBJECTIVE: Vital Signs-as noted below Exam: General-no distress Eyes-Normal ENT-normal Neck-supple Lungs-Clear to auscultate bilaterally Heart-Regular Abdomen-Benign,no masses,bowel sound present Extremities-No edema Neuro-AAOx3 Lab data as noted below. ASSESSMENT & PLAN: Fall Imaging studies negative for acute pathology Remains generally weak Ongoing PT and OT evaluation Transfer to rehab when there is a bed HYPOXIA/ POSSIBLE RLL PNEUMONIA Small R base infiltrate seen on CT chest; ruled out for PE Continue PO doxycycline No more desaturation Saturating >90% on RA THORACIC AORTIC ANEURYSM New incidental finding CT chest: 5.2 cm aneurysmal dilatation apex of the aortic arch. It is partially thrombus filled with a true luminal dimension of 3.5 cm. No evidence for dissection. Appreciate Vascular surgery input Conservative approach HYPERTENSION Elevated on presentation likely secondary to anxiety No hx of HTN or use of HTN meds at home Currently controlled, monitor LUNG NODULE CT chest: 1 cm nodular density peripheral aspect right midlung May need close monitoring as outpatient DEPRESSION Continue sertraline No acute Delirium GLAUCOMA Continue eye drops DVT PX Heparin SQ CODE STATUS DNR DISPOSITION: Lives at [facility]; followed by Dr. Wang Needs acute rehab Vs SNF Social service/PT/OT consulted Plan to discharge when bed available Vital Signs: Date Time Temp Pulse Resp B/P Pulse Ox O2 Delivery O2 Flow Rate FiO2 11/09/16 11:27 36.4 67 18 95/54 96 Room Air 11/09/16 08:00 92 Room Air 11/09/16 07:30 36.3 60 18 142/94 92 Room Air 11/09/16 07:28 36.3 60 18 142/94 92 Room Air 11/09/16 04:00 92 Room Air 11/09/16 00:13 36.6 64 20 89/58 94 Room Air 11/09/16 00:00 92 Room Air 11/08/16 20:00 92 Room Air 11/08/16 19:50 36.8 79 18 124/47 91 Room Air 11/08/16 16:00 92 Room Air 11/08/16 15:24 36.7 71 18 100/71 92 Room Air Lab Results: Results Past 24 Hours Test 11/09/16 07:02 Range/Units White Blood Count 4.62 4.8-10.8 K/uL Red Blood Count 4.39 4.2-5.4 M/uL Hemoglobin 12.5 12.0-16.0 g/dL Hematocrit 38.6 37-47 % Mean Corpuscular Volume 87.9 80-100 fL Mean Corpuscular Hemoglobin 28.5 25-34 pg Mean Corpuscular Hemoglobin Concent 32.4 32-36 g/dl RDW Standard Deviation 48.7 36.4-46.3 fL RDW Coefficient of Variation 15.0 11.5-14.5 % Platelet Count 165 130-400 K/uL Mean Platelet Volume 10.5 7.4-10.4 fL Sodium Level 142 136-145 mmol/L Potassium Level 3.9 3.5-5.1 mmol/L Chloride Level 106 98-107 mmol/L Carbon Dioxide Level 28 21-32 mmol/L Anion Gap 8.0 3-11 mmol/L Blood Urea Nitrogen 18 7-18 mg/dl Creatinine 0.95 0.60-1.20 mg/dl Est Creatinine Clear Calc Drug Dose 35.6 ml/min Estimated GFR () 62.0 Estimated GFR (Non- 53.5 BUN/Creatinine Ratio 19.1 10-20 Random Glucose 95 70-99 mg/dl Calcium Level 8.5 8.5-10.1 mg/dl Phosphorus Level 3.5 2.5-4.9 mg/dl Magnesium Level 2.3 1.8-2.4 mg/dl
[2016-11-09] MEDS ORDERED: LCTX PO (14:34)
[2016-11-09] MEDS ORDERED: DXY100 PO (14:34)
--- NOTE | 2016-11-09 14:39 | Discharge Instructions ---
Discharge Instructions Date of Service Nov 09, 2016. Admission Reason for Admission: Fall, Hypoxia Discharge Discharge Diagnosis / Problem: Fall likely secondary to ambulatory dysfunction, HTN -not on any medication Discharge Goals Goal(s): Prevent Disease Progression Activity Recommendations Activity Level: Assistance Required (At6 times) Therapies: Physical Therapy, Occupational Therapy . Additional Information Patient informed of condition: Yes Advance Directives: No DNR: Yes Level of Care: Skilled Communicable Disease: No Prognosis: Stable Oxygen at (LPM): 2 liters/min via NC as needed Catalan Catheter: No Instructions / Follow-Up Instructions / Follow-Up Please make an appointment with your PCP in 1 week,Follow up CT needed at some point to evaluate lung nodule Current Hospital Diet Patient's current hospital diet: AHA Diet (Heart Healthy), Low Sodium Diet (2gm Na) Discharge Diet Recommended Diet: AHA Diet (Heart Healthy) Pending Studies Studies pending at discharge: no Laboratory Results Hemoglobin A1c Test 09/27/16 06:25 Range/Units Estimated Average Glucose 128 mg/dl Hemoglobin A1c 6.1 H 4.5-5.6 % Medical Emergencies . Who to Call and When: Medical Emergencies: If at any time you feel your situation is an emergency, please call 911 immediately. . Non-Emergent Contact Non-Emergency issues call your: Primary Care Provider . Past History Medical & Surgical History: (1) Thoracic aortic aneurysm (2) General weakness (3) Fall (4) Depression (5) Cataracts (6) Glaucoma (7) S/P IVC filter (8) S/P hysterectomy (9) History of repair of hip fracture . "Provider Documentation" section prepared by Jarrett Madison. Core Measure Problem Core Measures: None
--- NOTE | 2016-11-09 19:03 | Discharge Summary ---
Discharge Summary Date of Service Nov 09, 2016. Discharge Summary Admission Date: Nov 06, 2016 at 11:05 Discharge Date: Nov 09, 2016 Discharge Disposition: Rehab Principal Diagnosis: Fall likely secondary to ambulatory dysfunction,HTN -not on any medication Secondary Diagnoses/Problems: Please see H&P and Hospital follow progress note Consultations: Vascular surgery Medication Reconciliation New Medications: Lactobacillus Acidophilus (Lactinex) Tab 2 TAB PO BID, #30 TAB Doxycycline Hyclate (Doxycycline Hyclate) 100 Mg Cap 100 MG PO BID for 7 Days, #14 CAP Continued Medications: Albuterol Sulfate (Proair Respiclick) 108 Mcg/Act Aer 2 PUFFS INH Q4 PRN for cough or wheezing Bisacodyl (Bisac-Evac) 10 Mg Supp 1 SUPP TN DAILY PRN for Constipation Brimonidine Tartrate (Brimonidine Tartrate) 0.2 % Meliza 1 DROP OPB TID Calcium/Vitamin D (Os-Tommie 500 Plus D) Tab 1 TAB PO DAILY, TAB Magnesium Hydroxide (Milk Of Magnesia) 30 Ml Susp 30 ML PO DAILY PRN for Constipation, ML Omeprazole (Prilosec) 40 Mg Cap 40 MG PO BID, CAP Ondansetron Hcl (Zofran) 4 Mg Tab 4 MG PO Q6 PRN for Nausea, TAB Sennosides-Docusate Sodium (Sennalax-S) 1 Tab Tab 1 TAB PO DAILY Sertraline (Zoloft) 25 Mg Tab 25 MG PO DAILY Timolol Hemihydrate 0.25% Oph (Betimol 0.25% Oph) 0.25 % Meliza 1 DROP OPB BID, BTL Admission Information HPI (per Admitting provider): This is an 86 year old female with PMH listed below who was brought to the ED by ambulance from [facility] s/p fall. Hx obtained from daughters, records, and [facility] staff as patient is not a reliable historian and likely has underlying dementia. Pt does not recall what happened. Per my phone call with [facility] the fall was unwitnessed in her room after she ambulated from the living room. Unknown if there was head trauma or LOC. She was c/o hip and back pain when they found her down. She sustained a skin tear to her right elbow. An ambulance was called. On arrival to the ER she was found to be hypoxic to 88% on RA which improved on 2 liters NC. She is not on chronic oxygen. She ambulated to the restroom in the ER with assistance. She denies any pain, dizziness, headache. No focal neurological symptoms. She is oriented only to person and is unable to recall events. Her mental status is at baseline per her daughters. She ambulates with a walker typically. No other recent falls. Patient had a CT scan done in the ER showing 5.2 cm thoracic aortic aneurysm which is partially thrombus filled as well as a small infiltrate on right base. Pt denies chest pain or SOB. Family states they noted her coughing today but not bringing up sputum. There was no recent fever, upper respiratory symptoms, cough, SOB, or aspiration noted by [facility] staff. No recent GI symptoms per the family- eating well and having regular bowel movements. She is incontinent of urine in the ER which is not typical for her. Patient's blood pressure has been significantly elevated in the ER. She is extremely anxious when the cuff is being inflated. Her BP is not monitored at the [facility] jail. Daughters deny hx of HTN. She is not on chronic BP meds. She was given IV labetalol in the ER. Family denies hx of cardiac disorder, lung disease, pneumonia, diabetes, CVA, TIA, seizure. As per family she was not known to have thoracic aortic aneurysm in the past. No recent hospitalization or antibiotics. Past Medical/Surgical History Medical Problems: (1) Cataracts Status: Chronic (2) Depression Status: Chronic (3) GI bleed Permanent Comment: secondary to duodenal ulcer in s/p injection and clipping at [facility] 08/21/14; [place] [facility] [place] of gastro duodenal artery [place]22/14 which was complicated by unintended hepatic artery embolization Status: Resolved (4) Glaucoma Status: Chronic (5) Hip fracture, intertrochanteric Status: Resolved (6) History of duodenal ulcer Status: Chronic (7) Intertrochanteric fracture Status: Resolved (8) Syncope Permanent Comment: 08/2014 second to acute blood loss anemia Status: Resolved Surgical Problems: (1) History of repair of hip fracture Permanent Comment: right Status: Chronic (2) S/P hysterectomy Status: Chronic (3) S/P IVC filter Permanent Comment[place] [facility] [place] at time of gastroduodenal artery embolization for duodenal hemorrhage Status: Chronic Family History Cancer FH: CAD (coronary artery disease) FATHER MOTHER FH: aortic aneurysm BROTHER Social History Smoking Status: Never Smoker Alcohol Use: none Drug Use: none Housing status: other (assisted living [facility]) Occupational Status: retired Multi-Drug Resistant Organisms History of MDRO: No Allergies Coded Allergies: Cephalosporins (Verified Allergy, Unknown, ., 11/06/16) Penicillins (Verified Allergy, Unknown, Unknown, 11/06/16) Reported by daughters. Home Medications Scheduled Brimonidine Tartrate (Brimonidine Tartrate), 1 DROP OPB TID Calcium/Vitamin D (Os-Tommie 500 Plus D), 1 TAB PO DAILY Omeprazole (Prilosec), 40 MG PO BID Sennosides-Docusate Sodium (Sennalax-S), 1 TAB PO DAILY Sertraline (Zoloft), 25 MG PO DAILY Timolol Hemihydrate 0.25% Oph (Betimol 0.25% Oph), 1 DROP OPB BID Scheduled PRN Albuterol Sulfate (Proair Respiclick), 2 PUFFS INH Q4 PRN for cough or wheezing Bisacodyl (Bisac-Evac), 1 SUPP TN DAILY PRN for Constipation Magnesium Hydroxide (Milk Of Magnesia), 30 ML PO DAILY PRN for Constipation Ondansetron Hcl (Zofran), 4 MG PO Q6 PRN for Nausea Review of Systems ROS could not be performed as patient is not a reliable historian. Likely underlying dementia. Physical Ex - H&P Physical Exam Vital Signs Date Time Temp Pulse Resp B/P Pulse Ox O2 Delivery O2 Flow Rate FiO2 11/06/16 10:45 88 Nasal Cannula 2.0 11/06/16 09:40 99 22 159/110 88 Room Air 11/06/16 09:20 95 Nasal Cannula 2.0 11/06/16 08:15 88 18 175/87 94 Room Air 11/06/16 06:32 74 11/06/16 06:25 36.4 70 20 196/97 99 Nasal Cannula 4.0 General Appearance: WD/WN, + pertinent finding (alert 86 year old female, demented, family at bedside) Head: normocephalic, atraumatic Eyes: normal inspection, PERRL, EOMI ENT: hearing grossly normal, pharynx normal Neck: supple, trachea midline Respiratory/Chest: lungs clear, normal breath sounds, no respiratory distress, no accessory muscle use, + pertinent finding (patient had coughing episode during exam, appeared to expectorate sputum into her mouth, refused to spit into tissue) Cardiovascular: regular rate, rhythm, no murmur Abdomen/GI: normal bowel sounds, non tender, soft Extremities/Musculoskelatal: no calf tenderness, no pedal edema, + pertinent finding (she is diffusely sensitive to light touch throughout her extremities) Neurologic/Psych: alert, + pertinent finding (oriented to person only. unable to recall recent events. follows commands. no facial droop. no focal motor deficit. severe anxiety when blood pressure cuff inflates.) Skin: normal color, warm/dry, + pertinent finding (dressing over skin tear on right elbow) Diagnostics - H&P Diagnostics Laboratory Results Results Past 24 Hours Test 11/06/16 07:00 11/06/16 07:40 Range/Units Urine Color YELLOW Urine Appearance CLEAR CLEAR Urine pH 7.0 4.5-7.5 Urine Specific Hector 1.020 1.000-1.030 Urine Protein NEG NEG Urine Glucose (UA) NEG NEG Urine Ketones NEG NEG Urine Occult Blood NEG NEG Urine Nitrite NEG NEG Urine Bilirubin NEG NEG Urine Urobilinogen NEG NEG Urine Leukocyte Esterase NEG NEG White Blood Count 6.66 4.8-10.8 K/uL Red Blood Count 4.58 4.2-5.4 M/uL Hemoglobin 13.1 12.0-16.0 g/dL Hematocrit 39.5 37-47 % Mean Corpuscular Volume 86.2 80-100 fL Mean Corpuscular Hemoglobin 28.6 25-34 pg Mean Corpuscular Hemoglobin Concent 33.2 32-36 g/dl Platelet Count 172 130-400 K/uL Mean Platelet Volume 10.1 7.4-10.4 fL Neutrophils (%) (Auto) 81.4 % Lymphocytes (%) (Auto) 10.1 % Monocytes (%) (Auto) 6.2 % Eosinophils (%) (Auto) 1.5 % Basophils (%) (Auto) 0.5 % Neutrophils # (Auto) 5.43 1.4-6.5 K/uL Lymphocytes # (Auto) 0.67 1.2-3.4 K/uL Monocytes # (Auto) 0.41 0.11-0.59 K/uL Eosinophils # (Auto) 0.10 0-0.5 K/uL Basophils # (Auto) 0.03 0-0.2 K/uL RDW Standard Deviation 47.6 36.4-46.3 fL RDW Coefficient of Variation 15.0 11.5-14.5 % Immature Granulocyte % (Auto) 0.3 % Immature Granulocyte # (Auto) 0.02 0.00-0.02 K/uL Sodium Level 142 136-145 mmol/L Potassium Level 4.0 3.5-5.1 mmol/L Chloride Level 108 98-107 mmol/L Carbon Dioxide Level 27 21-32 mmol/L Anion Gap 7.0 3-11 mmol/L Blood Urea Nitrogen 11 7-18 mg/dl Creatinine 0.84 0.60-1.20 mg/dl Est Creatinine Clear Calc Drug Dose 41.1 ml/min Estimated GFR () 71.9 Estimated GFR (Non- 62.1 BUN/Creatinine Ratio 13.1 10-20 Random Glucose 113 70-99 mg/dl Calcium Level 8.6 8.5-10.1 mg/dl Total Bilirubin 0.4 0.2-1 mg/dl Direct Bilirubin < 0.1 0-0.2 mg/dl Aspartate Amino Transf (AST/SGOT) 21 15-37 U/L Alanine Aminotransferase (ALT/SGPT) 24 12-78 U/L Alkaline Phosphatase 103 45-117 U/L Total Protein 7.1 6.4-8.2 gm/dl Albumin 3.5 3.4-5.0 gm/dl Diagnostic Radiology PELVIS 1 OR 2 VIEW ROUTINE CLINICAL HISTORY: fall trauma. Pain. COMPARISON: 08/13/2014 DISCUSSION: Findings of a prior right hip nailing procedure. No well-defined acute bony abnormality. There is no evidence for soft tissue swelling. IMPRESSION: Postoperative change right hip and femur. No acute bony abnormality. HEAD CT NONCONTRAST CT DOSE: 1842.80 mGy.cm HISTORY: Trauma. Mental status change. fall, mild confusion TECHNIQUE: Multiaxial CT images of the head were performed without the use of intravenous contrast. Comparison: 08/21/2014 Findings: The paranasal sinuses and mastoid air cells are clear. The calvarium and skull base are intact. The ventricles and sulci are within normal limits. There is no mass, hematoma, midline shift, or acute infarct. Findings of considerable chronic small vessel change. 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 No new or interval finding based on the current exam. Moderate artifact based on patient motion. Impression: No acute intracranial abnormality. Considerable chronic small vessel change as well as age-related atrophy. CHEST ONE VIEW PORTABLE CLINICAL HISTORY: fall trauma COMPARISON STUDY: 08/21/2014 FINDINGS: Superior mediastinal fullness possibly progressive compared to the prior study. This may be secondary to AP technique, although visibility of the aortic arch is somewhat suboptimal. CT of the chest is suggested. Lungs otherwise appear clear. Stable nodularity right upper lung. IMPRESSION: Increased prominence of the superior mediastinum with indistinctness of the aortic arch. CT of the chest is recommended as follow-up. CHEST CTA for PULMONARY ARTERIES CT DOSE: 503.08 mGy.cm HISTORY: Chest pain dyspnea TECHNIQUE: Multiaxial CT images of the chest were performed following the intravenous administration of contrast to evaluate the pulmonary arteries. Maximal intensity projection images were also obtained. COMPARISON STUDY: None. FINDINGS: Aneurysmal dilatation thoracic aorta with maximum diameter at the level of the arch of 5.2cm. This is partially thrombus filled with a true luminal dimension of 3.6 cm. There is no evidence for dissection. Pulmonary arterial vasculature enhances appropriately. There is a very small parenchymal infiltrate posterior aspect right lower lobe. There is a 1 cm peripherally based nodule right midlung. Upper lungs otherwise are clear. IMPRESSION: 1. 5.2 cm aneurysmal dilatation apex of the aortic arch. 2. It is partially thrombus filled with a true luminal dimension of 3.5 cm. 3. No evidence for dissection or pulmonary embolus. 4. A small parenchymal infiltrate right base. 5. 1 cm nodular density peripheral aspect right midlung. Close CT follow-up in approximately 3 months is suggested EKG NSR, 84 bpm, possible nonspecific T wave abnormality inferior leads but difficult to interpret due to artifact Impression - H&P Impression Assessment and Plan S/P FALL Unwitnessed; history unobtainable from patient No apparent injury except for R elbow skin tear CT head-no acute findings; x-ray pelvis- no acute findings Fall precautions PT and OT evaluations HYPERTENSION BP significantly elevated in ER; likely due to anxiety No hx of HTN; not on chronic BP meds Treated with IV labetalol in ER Ordered IV Lopressor 5 mg PRN SBP >180 THORACIC AORTIC ANEURYSM New diagnosis found incidentally CT chest- 5.2 cm aneurysmal dilatation apex of the aortic arch. It is partially thrombus filled with a true luminal dimension of 3.5 cm. No evidence for dissection. Family states they would not want patient to have surgery and prefer conservative management Family would like vascular surgery input Consult vascular surgery HYPOXIA/ POSSIBLE RLL PNEUMONIA Small R base infiltrate seen on CT chest; ruled out for PE + hypoxia on RA improved with 2 liters NC; not on home O2; afebrile; no leukocytosis; procalcitonin WNL Family noted patient coughing today only No suspected aspiration per [facility] staff Check influenza PCR Will start on PO doxycycline Continue supplemental O2 per protocol. LUNG NODULE CT chest shows 1 cm nodular density peripheral aspect right midlung. Close CT follow-up in approximately 3 months is suggested Follow as outpatient HX PUD Continue PPI DEPRESSION Continue sertraline GLAUCOMA Continue eye drops DVT PROPHYLAXIS Heparin SQ CODE STATUS DNR per my discussion with the daughters who are both JAMI Barron ) and Kaitlinveronica Prince ([phone]). Daughters request to be called with updates and would like to be present for vascular surgery consult. DISPOSITION Lives at [facility]; followed by Dr. Wang May need higher level of care Social service, PT, OT consults placed Patient seen in collaboration with Dr. Mckinney. Please see his addendum. Attending Note: Patient is an 86 yr old female with presents for evaluation after having an unwitnessed fall. She has dementia and is unaware of the events at [facility]. Imaging studies were negative for any acute fractures. Currently she denies any pain. On Arrival in ED she was saturating 88% on RA which improved with 2L NC. Mental status at baseline per family. CT showed an incidental finding of 5.2 cm thoracic aortic aneurysm which is partially thrombus filled as well as a small infiltrate on right base. BP elevated when arrival, currently resolved. Physical Exam: Vitals signs as noted above General Appearance:Moderately built and nourished, no apparent distress Head: normocephalic, Atraumatic Eyes: normal inspection, EOMI, PERRLA Neck: supple, Trachea midline Respiratory/Chest: Normal breath sounds, CTA Cardiovascular: S1, S2, No murmur Abdomen/GI:Soft, Non tender, Bowel sounds present Extremities/Musculoskelatal:normal inspection, Trace edema Neurologic/Psych:AAOX3, grossly no focal neurological deficits Skin:normal color,warm Assessment and Plan: Unwitnessed fall: Imaging studies negative for acute pathology Mental status at baseline CT head: No acute pathology Fall precautions PT/OT THORACIC AORTIC ANEURYSM New incidental finding CT chest: 5.2 cm aneurysmal dilatation apex of the aortic arch. It is partially thrombus filled with a true luminal dimension of 3.5 cm. No evidence for dissection. Asymptomatic conservative management per request of family Vascular surgery consulted for input I personally reviewed the record. Patient is interviewed and examined at bedside. Patient's care is coordinated with Carlene Aragon PA-C. Please refer to the documentation above for details of patient's presentation and for discussion of other issues. Advanced Directives Existing Living Will: Yes Existing Power of [employer] Operator: Yes VTE Prophylaxis VTE Risk Assessment Done? Y/N: Yes Risk Level: High Physical Exam (per Admitting): General Appearance: WD/WN, + pertinent finding (alert 86 year old female, demented, family at bedside) Head: normocephalic, atraumatic Eyes: normal inspection, PERRL, EOMI ENT: hearing grossly normal, pharynx normal Neck: supple, trachea midline Respiratory/Chest: lungs clear, normal breath sounds, no respiratory distress, no accessory muscle use, + pertinent finding (patient had coughing episode during exam, appeared to expectorate sputum into her mouth, refused to spit into tissue) Cardiovascular: regular rate, rhythm, no murmur Abdomen/GI: normal bowel sounds, non tender, soft Extremities/Musculoskelatal: no calf tenderness, no pedal edema, + pertinent finding (she is diffusely sensitive to light touch throughout her extremities) Neurologic/Psych: alert, + pertinent finding (oriented to person only. unable to recall recent events. follows commands. no facial droop. no focal motor deficit. severe anxiety when blood pressure cuff inflates.) Skin: normal color, warm/dry, + pertinent finding (dressing over skin tear on right elbow) Hospital Course Fall Imaging studies negative for acute pathology Remains generally weak Ongoing PT and OT evaluation Transfer to rehab when there is a bed HYPOXIA/ POSSIBLE RLL PNEUMONIA Small R base infiltrate seen on CT chest; ruled out for PE Continue PO doxycycline No more desaturation Saturating >90% on RA THORACIC AORTIC ANEURYSM New incidental finding CT chest: 5.2 cm aneurysmal dilatation apex of the aortic arch. It is partially thrombus filled with a true luminal dimension of 3.5 cm. No evidence for dissection. Appreciate Vascular surgery input Conservative approach HYPERTENSION Elevated on presentation likely secondary to anxiety No hx of HTN or use of HTN meds at home Currently controlled, monitor LUNG NODULE CT chest: 1 cm nodular density peripheral aspect right midlung May need close monitoring as outpatient DEPRESSION Continue sertraline No acute Delirium GLAUCOMA Continue eye drops DVT PX Heparin SQ CODE STATUS DNR DISPOSITION: Lives at [facility]; followed by Dr. Wang Needs acute rehab Vs SNF Social service/PT/OT consulted Plan to discharge when bed available Total time spent on discharge = 35 minutes This includes examination of the patient, discharge planning, medication reconciliation, and communication with other providers. Discharge Instructions Date of Service Nov 09, 2016. Admission Reason for Admission: Fall, Hypoxia Discharge Discharge Diagnosis / Problem: Fall likely secondary to ambulatory dysfunction, HTN -not on any medication Discharge Goals Goal(s): Prevent Disease Progression Activity Recommendations Activity Level: Assistance Required (At6 times) Therapies: Physical Therapy, Occupational Therapy . Additional Information Patient informed of condition: Yes Advance Directives: No DNR: Yes Level of Care: Skilled Communicable Disease: No Prognosis: Stable Oxygen at (LPM): 2 liters/min via NC as needed Catalan Catheter: No Instructions / Follow-Up Instructions / Follow-Up Please make an appointment with your PCP in 1 week,Follow up CT needed at some point to evaluate lung nodule Current Hospital Diet Patient's current hospital diet: AHA Diet (Heart Healthy), Low Sodium Diet (2gm Na) Discharge Diet Recommended Diet: AHA Diet (Heart Healthy) Pending Studies Studies pending at discharge: no Laboratory Results Hemoglobin A1c Test 09/27/16 06:25 Range/Units Estimated Average Glucose 128 mg/dl Hemoglobin A1c 6.1 H 4.5-5.6 % Medical Emergencies . Who to Call and When: Medical Emergencies: If at any time you feel your situation is an emergency, please call 911 immediately. . Non-Emergent Contact Non-Emergency issues call your: Primary Care Provider . Past History Medical & Surgical History: (1) Thoracic aortic aneurysm (2) General weakness (3) Fall (4) Depression (5) Cataracts (6) Glaucoma (7) S/P IVC filter (8) S/P hysterectomy (9) History of repair of hip fracture . "Provider Documentation" section prepared by Jarrett Madison. Core Measure Problem Core Measures: None <Electronically signed by Jarrett Madison M.D.>
== END 2016-11-09 14:53 | DRG 195 ==
LOC: ENRESERVDT → ENRESERVTM → EDBD 06:21 → C.EDB 06:22 → C.MED 11:05
PROVIDERS: ADMIT Internal Medicine; ATTEND Internal Medicine
DX: J18.9 Pneumonia, unspecified organism (principal); M25.552 Pain in left hip; F32.9 Major depressive disorder, single episode, unspecified; Z88.0 Allergy status to penicillin; R91.1 Solitary pulmonary nodule; Z66 Do not resuscitate; I10 Essential (primary) hypertension; H40.9 Unspecified glaucoma; Z96.89 Presence of other specified functional implants; I71.2 Thoracic aortic aneurysm, without rupture; S51.011A Laceration without foreign body of right elbow, initial encounter; F03.90 Unspecified dementia, unspecified severity, without behavioral disturbance, psychotic disturbance, mood disturbance, and anxiety; Y92.199 Unspecified place in other specified residential institution as the place of occurrence of the external cause; W19.XXXA Unspecified fall, initial encounter

== ENCOUNTER → 2016-12-06 | Outpatient (CLI) | payer OTHER, MEDICARE ==
[~2016-12-06] MED LIST changes: +ACET-1256 PO; +ALBU18002 INH; -BIMA0.01 OPB; +BRIM0.2S18 OPB; -CALC-20 PO; +CALC500C70 PO; +DLCS PR; +DXY100 PO; +LCTX PO; -LVNIS30 SC; +MOML PO; +OMEP40CA41 PO; +ONDA4TAB46 PO; -OXYC1TAB3 PO; -POLY335025 PO; +SENN1TAB86 PO; +TIMO1SOL6 OPB; -TMPOPS15 OPB
[2016-12-06 12:12] LABS: HEMATOCRIT 39.1 % (37-47); MEAN CELL VOLUME 90.9 fL (80-100); MEAN CORPUSCULAR HEMOGLOBIN 28.4 pg (25-34); MEAN CORPUSCULAR HGB CONC 31.2 g/dl (32-36); MEAN PLATELET VOLUME 10.7 fL (7.4-10.4); PLATELET COUNT 215 K/uL (130-400); WHITE BLOOD COUNT 6.78 K/uL (4.8-10.8)
[2016-12-06 13:09] LABS: BLOOD UREA NITROGEN 14 mg/dl (7-18); BUN/CREATININE RATIO 17.8 (10-20); CALCIUM 8.5 mg/dl (8.5-10.1); CARBON DIOXIDE 30 mmol/L (21-32); CHLORIDE 106 mmol/L (98-107); CREATININE 0.78 mg/dl (0.60-1.20); GLUCOSE 112 mg/dl (70-99); POTASSIUM 4.2 mmol/L (3.5-5.1); SODIUM 142 mmol/L (136-145)
== END | disposition home or self-care (01) ==
LOC: C.LABWYN 12:56
PROVIDERS: ATTEND Nurse Practitioner Adult Health
DX: D64.9 Anemia, unspecified (principal); R33.9 Retention of urine, unspecified

== ENCOUNTER 2017-05-23 13:49 | Emergency (ER) | payer OTHER, MEDICARE ==
[~2017-05-23] VITALS: Ht 157.5 cm; Wt 72.9 kg
[~2017-05-23 13:49] MED LIST changes: -ACET-1256 PO; -DOCU100C31 PO; -LCTX PO; -SENN1TAB86 PO; +SENN8.6T15 PO
[2017-05-23 14:03] VITALS: TEMP 37.1; Ht 157.5 cm; Wt 72.9 kg
--- NOTE | 2017-05-23 15:03 | DIAGNOSTIC IMAGING REPORT ---
PELVIS 1 OR 2 VIEW ROUTINE CLINICAL HISTORY: fall, buttock pain COMPARISON STUDY: Pelvis 11/06/2016. FINDINGS: There again noted postoperative changes within the proximal right femur consistent with internal fixation of an old fracture. 2.8 cm focus of heterotopic ossification superior to the right femoral neck. This remains unchanged. Multiple pelvic phleboliths are again noted. No acute fracture or dislocation within the pelvis or hips. IVC filter is noted. The sacrum appears intact. IMPRESSION: No acute fracture or dislocation within the pelvis or hips. Specifically, the sacrum appears intact. Electronically signed by: Dwayne Waggoner M.D. 05/23/2017 3:02 PM Dictated Date/Time: 05/23/2017 3:00 PM
[2017-05-23] MEDS ORDERED: DOCU100C31 PO (15:20)
[2017-05-23] MEDS ORDERED: ACET-1256 PO (15:20)
[2017-05-23] MEDS ORDERED: LCTX PO (15:20)
[2017-05-23 15:47] VITALS: BP 165/100; PULSE 101; O2SAT 94
--- NOTE | 2017-05-23 16:01 | EMERGENCY ROOM VISIT NOTE ---
History Report prepared by Caroleeibjoshua: David Almodovar Under the Supervision of: Dr. Shady Rodriguez D.O. First contact with patient: 14:08 Chief Complaint: FALL Stated Complaint: BACK PAIN History of Present Illness The patient is a 86 year old female who presents to the Emergency Room with complaints of constant bilateral buttock pain s/p fall occurring just prior to arrival. The patient is a resident at [facility]. She states that she lost her balance while walking backwards with her walker and fell backwards. She is not on any blood thinners. The patient did not try walking after the fall. She did not hit her head or lose consciousness during the fall. She notes that she feels very fatigued. The patient has a history of chronic right knee pain. She notes that she fell onto concrete. Source of History: patient Onset: Just prior to arrival Position: buttock (bilateral) Timing: constant Associated Symptoms: + fatigue, No LOC Review of Systems See HPI for pertinent positives & negatives. A total of 10 systems reviewed and were otherwise negative. Past Medical & Surgical Medical Problems: (1) Cataracts (2) Depression (3) GI bleed (4) Glaucoma (5) Hip fracture, intertrochanteric (6) History of duodenal ulcer (7) Hypoxia (8) Intertrochanteric fracture (9) Syncope Surgical Problems: (1) History of repair of hip fracture (2) S/P hysterectomy (3) S/P IVC filter Family History Cancer FH: CAD (coronary artery disease) FATHER MOTHER FH: aortic aneurysm BROTHER Social History Smoking Status: Never Smoker Alcohol Use: none Drug Use: none Housing Status: unknown Occupation Status: retired Current/Historical Medications Scheduled Brimonidine Tartrate (Brimonidine Tartrate), 1 DROP OPB TID Calcium/Vitamin D (Os-Tommie 500 Plus D), 1 TAB PO DAILY Docusate Sodium (Docusate Sodium), 100 MG PO BID Lactobacillus Acidophilus (Floranex), 1 TAB PO BID Omeprazole (Prilosec), 40 MG PO BID Sennosides-Docusate Sodium (Sennalax-S), 1 TAB PO DAILY Sertraline (Zoloft), 25 MG PO DAILY Timolol Hemihydrate 0.25% Oph (Betimol 0.25% Oph), 1 DROP OPB BID Scheduled PRN Acetaminophen (Tylenol), 500 MG PO Q4 PRN for Pain Albuterol Sulfate (Proair Respiclick), 2 PUFFS INH Q4 PRN for cough or wheezing Allergies Coded Allergies: Cephalosporins (Verified Allergy, Unknown, ., 05/23/17) Penicillins (Verified Allergy, Unknown, Unknown, 05/23/17) Reported by daughters. Physical Exam Vital Signs Date Time Temp Pulse Resp B/P (MAP) Pulse Ox O2 Delivery O2 Flow Rate FiO2 05/23/17 15:47 101 20 165/100 94 Room Air 05/23/17 14:03 37.1 82 163/102 96 Room Air Physical Exam CONSTITUTIONAL/VITAL SIGNS: Reviewed / noted above. GENERAL: Non-toxic in appearance. INTEGUMENTARY: Warm, dry, and [place]. HEAD: Normocephalic. EYES: without scleral icterus or trauma. ENT/OROPHARYNX: clear and moist. LYMPHADENOPATHY/NECK: Is supple without lymphadenopathy or meningismus. RESPIRATORY: Lungs clear and equal. CARDIOVASCULAR: Regular rate and rhythm. GI/ABDOMEN: Soft and nontender. No organomegaly or pulsatile mass. No rebound or guarding. Normal bowel sounds. EXTREMITIES: Mild tenderness to palpation of the bilateral buttocks. Able to stand without significant discomfort. BACK: No CVA tenderness. NEUROLOGICAL: Intact without focal deficits. PSYCHIATRIC: normal affect. MUSCULOSKELETAL: Normally developed with good muscle tone. Medical Decision & Procedures ER Provider Diagnostic Interpretation: X ray results and stated below per my interpretation and radiology interpretation. PELVIS 1 OR 2 VIEW ROUTINE FINDINGS: There again noted postoperative changes within the proximal right femur consistent with internal fixation of an old fracture. 2.8 cm focus of heterotopic ossification superior to the right femoral neck. This remains unchanged. Multiple pelvic phleboliths are again noted. No acute fracture or dislocation within the pelvis or hips. IVC filter is noted. The sacrum appears intact. IMPRESSION: No acute fracture or dislocation within the pelvis or hips. Specifically, the sacrum appears intact. Electronically signed by: Dwayne Waggoner M.D. 05/23/2017 3:02 PM ED Course 1409: Previous medical records were reviewed. The patient was evaluated in room B12B. A complete history and physical examination was performed. 1545: On reevaluation, the patient is resting comfortably. I discussed the results and findings with the patient. She verbalized agreement of the treatment plan. She was discharged home. Medical Decision Differential includes close head injury, intracranial bleed, facial trauma, cervical spine trauma, chest and thoracic trauma, abdominal and intra-abdominal trauma, spine neurologic trauma, extremity trauma. This is a 86-year-old female who presents to the ED with a chief complaint of buttock pain after fall. The patient states that she was using her walker and backing up when she lost her balance and fell onto her buttock. She complains of bilateral buttock cheek pain. She denies striking her head or other injuries. Her exam reveals some tenderness to palpation of the bilateral buttock. The patient was able to stand without assistance without significant pain. X-rays of the pelvis did not show any fractures or dislocations. She was told the results of the tests. The patient was felt to be stable for discharge and outpatient follow-up. Impression Primary Impression: Contusion of multiple sites Additional Impression: Fall Scribe Attestation The scribe's documentation has been prepared under my direction and personally reviewed by me in its entirety. I confirm that the note above accurately reflects all work, treatment, procedures, and medical decision making performed by me. Departure Information Dispostion Home / Self-Care Referrals LOLLY MEDNES (PCP) Patient Instructions Bruises Contusions, My [facility] Additional Instructions Take Tylenol as needed for pain. Follow-up with your doctor for further care and evaluation in 1-2 days. Return to the emergency department for worsening or new symptoms or any concerns. You have been examined and treated today on an emergency basis only. This is not a substitute for, or an effort to provide, complete comprehensive medical care. It is impossible to recognize and treat all injuries or illnesses in a single emergency department visit. It is therefore important that you follow up closely with your doctor. Call as soon as possible for an appointment. Problem Qualifiers
== END 2017-05-23 16:15 | disposition home or self-care (01) ==
LOC: EDBD 13:49 → C.EDB 13:50
DX: S70.01XA Contusion of right hip, initial encounter (principal); S70.02XA Contusion of left hip, initial encounter; W01.0XXA Fall on same level from slipping, tripping and stumbling without subsequent striking against object, initial encounter; F32.9 Major depressive disorder, single episode, unspecified; Z87.81 Personal history of (healed) traumatic fracture; Z98.49 Cataract extraction status, unspecified eye; Z87.19 Personal history of other diseases of the digestive system; Z90.710 Acquired absence of both cervix and uterus; Z98.890 Other specified postprocedural states; Z79.899 Other long term (current) drug therapy; Z88.0 Allergy status to penicillin; Z88.8 Allergy status to other drugs, medicaments and biological substances; Z82.49 Family history of ischemic heart disease and other diseases of the circulatory system; Z80.9 Family history of malignant neoplasm, unspecified

== ENCOUNTER → 2017-11-30 | Outpatient (CLI) | payer OTHER, MEDICARE ==
[~2017-11-30] MED LIST changes: +ACET-1256 PO; -DLCS PR; +DOCU100C31 PO; -DXY100 PO; +LCTX PO; -MOML PO; -ONDA4TAB46 PO; +SENN1TAB86 PO; -SENN8.6T15 PO
[2017-11-30 13:05] LABS: HEMATOCRIT 40.1 % (37-47); MEAN CELL VOLUME 90.9 fL (80-100); MEAN CORPUSCULAR HEMOGLOBIN 29.5 pg (25-34); MEAN CORPUSCULAR HGB CONC 32.4 g/dl (32-36); MEAN PLATELET VOLUME 10.4 fL (7.4-10.4); PLATELET COUNT 188 K/uL (130-400); RED CELL DISTRIBUTION WIDTH CV 14.6 % (11.5-14.5); WHITE BLOOD COUNT 4.92 K/uL (4.8-10.8)
[2017-11-30 13:50] LABS: BLOOD UREA NITROGEN 14 mg/dl (7-18); CALCIUM 8.3 mg/dl (8.5-10.1); CARBON DIOXIDE 27 mmol/L (21-32); CREATININE 0.93 mg/dl (0.60-1.20); GLUCOSE 105 mg/dl (70-99); POTASSIUM 4.1 mmol/L (3.5-5.1); SODIUM 141 mmol/L (136-145)
== END | disposition home or self-care (01) ==
LOC: C.LABWYN 13:04
PROVIDERS: ATTEND Internal Medicine
DX: D64.9 Anemia, unspecified (principal); I10 Essential (primary) hypertension